=== PATIENT | female | born 1980 | race Caucasian/White ===

== ENCOUNTER 2017-04-26 12:16 | Day surgery (SDC) | payer BC ==
[~2017-04-26] VITALS: Ht 162.6 cm; Wt 90.3 kg
[~2017-04-26 12:16] MED LIST: SEASONIQUE 01 TABLET PO
[2017-04-26 13:12] VITALS: BP 136/75
[2017-04-26] MEDS ORDERED: IBUPROFEN800 MG PO (15:56)
[2017-04-26] MEDS ORDERED: ENDOCET 5-3251 EACH PO (15:56)
[2017-04-26 17:25] VITALS: BP 144/70
[2017-04-26 18:24] VITALS: BP 155/86
== END 2017-04-26 18:45 | disposition home or self-care (01) ==
LOC: SDC 12:16
DX: N92.0 Excessive and frequent menstruation with regular cycle (principal); N94.6 Dysmenorrhea, unspecified; D25.9 Leiomyoma of uterus, unspecified; Q51.3 Bicornate uterus; N99.4 Postprocedural pelvic peritoneal adhesions; Q60.0 Renal agenesis, unilateral; I10 Essential (primary) hypertension; M06.9 Rheumatoid arthritis, unspecified; M79.7 Fibromyalgia; Z82.49 Family history of ischemic heart disease and other diseases of the circulatory system; Z83.3 Family history of diabetes mellitus; Z80.6 Family history of leukemia; Z80.1 Family history of malignant neoplasm of trachea, bronchus and lung; Z88.8 Allergy status to other drugs, medicaments and biological substances
CPT/HCPCS: 88305; 88307; J0131; J1100; J1580; J1885; J2250; J2405; J2710; J3010; J7050